=== PATIENT | female | born 1990 | race Caucasian/White ===

== ENCOUNTER 2023-06-18 16:25 | Observation (INO) | payer OTHER ==
[2023-06-18] VITALS (18 sets, daily range): BP systolic 94–140; BP diastolic 60–91
[~2023-06-18] VITALS: Ht 157.5 cm; Wt 66.0 kg
[2023-06-18 17:00] LABS: BASO% 0.1 % (0-3); HEMATOCRIT 45.2 % (37.0-47.0); HEMOGLOBIN 14.9 g/dl (12.0-16.0); IMMATURE GRANULOCYTES 0.3 % (0.0-5.0); MEAN CELL VOLUME 85.9 fL CALC (80.0-100.0); MEAN CORPUSCULAR HGB 28.3 pG CALC (26.0-32.0); MONO% 8.2 % (2-13); NEUT# 20.78 thou/uL (2.00-7.15); NEUT% 85.4 % (42-76); RED BLOOD COUNT 5.26 mill/uL (4.20-5.60); RED CELL DISTRI WIDTH 12.1 % (11.5-15.5)
[2023-06-18 17:18] LABS: URINE COLOR YELLOW; URINE GLUCOSE - DIPSTICK NEGATIVE (NEGATIVE); URINE KETONE 80 mg/dL (NEGATIVE)
[2023-06-18 17:19] LABS: URINE BLOOD DIPSTICK SMALL (NEGATIVE); URINE LEUK ESTERASE NEGATIVE (NEGATIVE); URINE NITRITE - DIPSTICK NEGATIVE (Negative); URINE PH 5.5 (4.5-8.0); URINE PROTEIN - DIPSTICK 30 mg/dL (NEG-TRACE); URINE SPECIFIC GRAVITY >=1.030; URINE UROBILINOGEN - DIPSTICK 0.2 E.U./dL (0.2)
[2023-06-18 17:20] LABS: URINE SQUAMOUS EPITHELIAL CELL FEW EPI/hpf (0-FEW); URINE WBC 0-2 WBC/hpf (0-5)
[2023-06-18 17:22] LABS: ALKALINE PHOSPHATASE 73 u/l (38-126); AMYLASE 68 u/l (30-110); ANION GAP 18 (6-22 (CALC)); BILIRUBIN, TOTAL 1.8 mg/dL (0.02-1.3); BUN 10 mg/dL (7-17); BUN/CREATININE RATIO 15 (12-20 (CALC)); CARBON DIOXIDE 20 mmol/l (22-30); CHLORIDE 103 mmol/l (95-108); CREATININE 0.7 mg/dL (0.5-1.0); GFR FOR AFR.AMER. > 60 ML/MIN (>=60 (CALC)); GFR OTHER RACES > 60 ML/MIN (>=60 (CALC)); LIPASE 26 u/l (23-300); POTASSIUM 3.8 mmol/l (3.5-5.1); SGOT/AST 30 u/l (14-36); SODIUM 137 mmol/l (137-146); TOTAL PROTEIN 8.9 g/dL (6.3-8.2)
[2023-06-18] MEDS ORDERED: PERCOCET 5/321 COMBO PO (19:50)
[2023-06-19] VITALS (7 sets, daily range): BP systolic 89–98; BP diastolic 54–69
[2023-06-19 09:53] LABS: MEAN CELL VOLUME 90.4 fL CALC (80.0-100.0); MEAN CORPUSCULAR HGB 28.9 pG CALC (26.0-32.0); RED BLOOD COUNT 4.15 mill/uL (4.20-5.60); RED CELL DISTRI WIDTH 12.8 % (11.5-15.5)
[2023-06-19 09:56] LABS: HEMATOCRIT 37.5 % (37.0-47.0)
[2023-06-20 05:12] VITALS: BP 91/55
[2023-06-20 07:44] VITALS: BP 110/69
[2023-06-20 16:24] VITALS: BP 100/64
[2023-06-20 18:50] VITALS: BP 108/65
[2023-06-20 18:52] VITALS: BP 108/76
[2023-06-20 19:15] VITALS: BP 108/76
[2023-06-20 19:26] LABS: HEMATOCRIT 37.5 % (37.0-47.0); HEMOGLOBIN 12.2 g/dl (12.0-16.0)
[2023-06-21 02:15] VITALS: BP 96/52
[2023-06-21 07:00] VITALS: BP 92/57
[2023-06-21 16:06] VITALS: BP 111/71
[2023-06-21 19:58] VITALS: BP 112/64
[2023-06-22 04:53] VITALS: BP 88/53
[2023-06-22 05:08] VITALS: BP 88/53
[2023-06-22 07:15] VITALS: BP 102/67
[2023-06-22 11:50] VITALS: BP 123/81
[2023-06-22] MEDS ORDERED: DOXYCYCLINE100 MG PO (11:51)
[2023-06-22] MEDS ORDERED: ZOFRAN4 MG/TAB PO (11:51)
[2023-06-26] MEDS ORDERED: ZOFRAN4 MG/TAB PO (12:51)
== END 2023-06-22 13:30 | disposition home or self-care (01) | DRG 343 ==
LOC: ED 16:25 → ED-I 18:00 → ED 18:01 → MS2 18:02
PROVIDERS: Family Medicine; ADMIT Surgery; ATTEND Surgery
PROC: 0DTJ4ZZ Resection of Appendix, Percutaneous Endoscopic Approach (ICD-10-PCS; principal; 2023-06-18)
DX: K35.30 Acute appendicitis with localized peritonitis, without perforation or gangrene (principal); N73.9 Female pelvic inflammatory disease, unspecified
CPT/HCPCS: A9537; J0131; J2805